=== PATIENT | female | born 1980 | race Caucasian/White ===

== ENCOUNTER 2016-05-13 18:37 | Emergency (ER) | payer OTHER ==
[~2016-05-13] VITALS: Ht 167.6 cm; Wt 110.2 kg
[~2016-05-13 18:37] MED LIST: ABILIFY10 MG PO; ABILIFY30 MG PO; AMBIEN10 MG PO; AMITRIPTYLINE H10 MG PO; CYMBALTA30 MG PO; CYMBALTA60 MG PO; IRON325 M1 PO; MAGNESIUM400 M1 PO; MEDROL DOSEPAK4 MG PO; MIRTAZAPINE7.5 MG PO; OMEPRAZOLE40 M1 PO; OXAYDO5 MG PO; OXYBUTYNIN CHLO10 MG PO; PRILOSEC40 MG PO; TRAMADOL HCL50 MG PO; TRAZODONE HCL50 MG PO; ULTRAM50 MG PO; VALIUM5 MG PO
[2016-05-13] MEDS ORDERED: SKELAXIN800 MG PO (20:16)
[2016-05-13] MEDS ORDERED: MEDROL DOSEPAK4 MG PO (20:16)
[2016-05-13 20:56] VITALS: BP 119/79
== END 2016-05-13 21:13 | disposition home or self-care (01) ==
LOC: EME 18:37
DX: M54.42 Lumbago with sciatica, left side (principal); R11.10 Vomiting, unspecified; G89.29 Other chronic pain; Z79.891 Long term (current) use of opiate analgesic; F17.200 Nicotine dependence, unspecified, uncomplicated
CPT/HCPCS: 99281; 99284; J3010

== ENCOUNTER 2016-07-09 17:08 | Emergency (ER) | payer OTHER ==
[~2016-07-09] VITALS: Ht 167.6 cm; Wt 110.9 kg
[~2016-07-09 17:08] MED LIST changes: +SKELAXIN800 MG PO
[2016-07-09] MEDS ORDERED: PREDNISONE10 MG PO (19:00)
[2016-07-09 19:19] VITALS: BP 128/76
== END 2016-07-09 19:21 | disposition home or self-care (01) ==
LOC: EME 17:08
DX: M54.42 Lumbago with sciatica, left side (principal); M62.838 Other muscle spasm; Z79.891 Long term (current) use of opiate analgesic; F17.200 Nicotine dependence, unspecified, uncomplicated
CPT/HCPCS: 99281; 99283; J1100

== ENCOUNTER 2016-10-09 10:46 | Day surgery (SDC) | payer OTHER ==
[~2016-10-09] VITALS: Ht 167.6 cm; Wt 108.9 kg
[~2016-10-09 10:46] MED LIST changes: +PREDNISONE10 MG PO
== END 2016-10-09 12:44 | disposition home or self-care (01) ==
LOC: PAIN 10:46 → SDC 11:30 → PAIN 11:30
DX: M47.26 Other spondylosis with radiculopathy, lumbar region (principal); M46.1 Sacroiliitis, not elsewhere classified; K21.9 Gastro-esophageal reflux disease without esophagitis; R73.03 Prediabetes; F41.8 Other specified anxiety disorders; E66.9 Obesity, unspecified; Z68.39 Body mass index [BMI] 39.0-39.9, adult; F17.210 Nicotine dependence, cigarettes, uncomplicated
CPT/HCPCS: J1100; J2250; J3010

== ENCOUNTER 2016-11-06 08:05 | Day surgery (SDC) | payer OTHER ==
[~2016-11-06] VITALS: Ht 167.6 cm; Wt 108.9 kg
== END 2016-11-06 10:10 | disposition home or self-care (01) ==
LOC: PAIN 08:05 → SDC 08:30 → PAIN 10:10
PROC: 3E0S33Z Introduction of Anti-inflammatory into Epidural Space, Percutaneous Approach (ICD-10-PCS; principal; 2016-11-06)
DX: M47.26 Other spondylosis with radiculopathy, lumbar region (principal); F41.9 Anxiety disorder, unspecified; M46.1 Sacroiliitis, not elsewhere classified; D64.9 Anemia, unspecified; F31.9 Bipolar disorder, unspecified; K21.9 Gastro-esophageal reflux disease without esophagitis; E66.9 Obesity, unspecified; Z68.39 Body mass index [BMI] 39.0-39.9, adult; R73.03 Prediabetes; G25.81 Restless legs syndrome
CPT/HCPCS: J1100; J2250; J3010

== ENCOUNTER 2016-11-16 10:27 | Emergency (ER) | payer OTHER ==
[~2016-11-16] VITALS: Ht 167.6 cm; Wt 109.8 kg
[2016-11-16] MEDS ORDERED: MOTRIN800 MG PO (11:25)
[2016-11-16 11:47] VITALS: BP 111/77
== END 2016-11-16 11:48 | disposition home or self-care (01) ==
LOC: EME 10:27
DX: S93.402A Sprain of unspecified ligament of left ankle, initial encounter (principal); F17.200 Nicotine dependence, unspecified, uncomplicated
CPT/HCPCS: 73610; 99281; 99284

== ENCOUNTER 2017-03-16 08:24 | Day surgery (SDC) | payer OTHER ==
[~2017-03-16] VITALS: Ht 167.6 cm; Wt 108.8 kg
[~2017-03-16 08:24] MED LIST changes: +MOTRIN800 MG PO
[2017-03-16 08:46] VITALS: BP 109/57
[2017-03-16 09:16] LABS: BASOPHIL COUNT 0.1 K/uL (0-0.1); EOSINOPHIL (%) 2.8 % (0-5); EOSINOPHIL COUNT 0.3 K/uL (0-0.3); HEMATOCRIT 43.2 % (36.0-46.0); IMMATURE GRANULOCYTE (%) 0.4 % (0.0-0.7); INSTRUMENT ABS NEUTROPHIL CT 5.6 K/uL; LYMPHOCYTE COUNT 2.3 K/uL (1.0-2.8); MCH 28.8 PG (29.0-34.0); MCHC 33.1 G/DL (30.0-36.0); MCV 86.9 FL (83-99); MEAN PLAT.VOLUME 11.6 uM^3 (9.5-12.4); MONOCYTE (%) 8.5 % (3-12); MONOCYTE COUNT 0.8 K/uL (0-0.8); NEUTROPHIL (%) 61.8 % (45-76); NEUTROPHIL COUNT 5.6 K/uL (1.8-6.4); PLATELET COUNT 246 K/uL (156-360); RBC DIS.WIDTH-CV 13.3 % (11.8-14.6); RBC DIS.WIDTH-SD 42.4 % (39-53); RED BLOOD COUNT 4.97 M/uL (3.80-5.20)
[2017-03-16] MEDS ORDERED: MOTRIN800 MG PO (11:23)
[2017-03-16] MEDS ORDERED: PERCOCET 5/31 TABLET PO (11:23)
[2017-03-16 12:30] VITALS: BP 114/69
[2017-03-16 13:30] VITALS: BP 108/57
[2017-03-16 17:00] VITALS: BP 121/73
== END 2017-03-16 17:05 | disposition home or self-care (01) ==
LOC: SDC 08:24
PROVIDERS: Obstetrics & Gynecology
DX: N39.46 Mixed incontinence (principal); N93.9 Abnormal uterine and vaginal bleeding, unspecified; D64.9 Anemia, unspecified; F41.9 Anxiety disorder, unspecified; F17.200 Nicotine dependence, unspecified, uncomplicated; K21.9 Gastro-esophageal reflux disease without esophagitis; E66.9 Obesity, unspecified; Z68.38 Body mass index [BMI] 38.0-38.9, adult; R73.03 Prediabetes
CPT/HCPCS: 84702; 85025; 86850; 86900; 86901; C1771; J0131; J0690; J1100; J1170; J1885; J2250; J2405; J2710; J3010

== ENCOUNTER 2017-07-05 18:59 | Emergency (ER) | payer OTHER ==
[~2017-07-05] VITALS: Ht 167.6 cm; Wt 113.3 kg
[~2017-07-05 18:59] MED LIST changes: +PERCOCET 5/31 TABLET PO
[2017-07-05 19:26] LABS: HEMATOCRIT 41.1 % (36.0-46.0); HEMOGLOBIN 13.8 G/DL (11.9-15.5); MCH 29.4 PG (29.0-34.0); MCHC 33.6 G/DL (30.0-36.0); MCV 87.6 FL (83-99); PLATELET COUNT 228 K/uL (156-360); RBC DIS.WIDTH-CV 13.2 % (11.8-14.6); RBC DIS.WIDTH-SD 42.2 % (39-53); RED BLOOD COUNT 4.69 M/uL (3.80-5.20); WHITE BLOOD COUNT 9.4 K/uL (4.1-10.2)
[2017-07-05 19:39] LABS: CHLORIDE 104 mEq/L (99-109); POTASSIUM 4.1 mEq/L (3.7-5.4); SODIUM 138 mEq/L (136-147)
[2017-07-05 19:40] LABS: GLUCOSE 118 mg/dL (70-99)
[2017-07-05 19:44] LABS: CREATININE 0.8 mg/dL (0.6-1.3); GFR ESTIMATE (CALCULATED) > 59 mL/min/
[2017-07-05 19:45] LABS: UREA NITROGEN (BUN) 7 mg/dL (9-23)
[2017-07-05 19:48] LABS: TROP-I INTERPRETATION NEGATIVE; TROPONIN-I < 0.01 ng/mL (0.0-0.30)
[2017-07-05 22:13] LABS: TROP-I INTERPRETATION NEGATIVE; TROPONIN-I < 0.01 ng/mL (0.0-0.30)
[2017-07-05 22:41] VITALS: BP 109/59
== END 2017-07-05 22:55 | disposition home or self-care (01) ==
LOC: EME → EDBD 18:59 → EME 18:59
PROVIDERS: Emergency Medicine
DX: R07.9 Chest pain, unspecified (principal); F31.9 Bipolar disorder, unspecified; K21.9 Gastro-esophageal reflux disease without esophagitis; F60.3 Borderline personality disorder; F41.9 Anxiety disorder, unspecified; Z91.5 Personal history of self-harm; F17.200 Nicotine dependence, unspecified, uncomplicated
CPT/HCPCS: 71046; 80048; 84484; 85027; 85379; 93005; 99281; 99285